=== PATIENT | male | born 1955 | race Caucasian/White ===

== ENCOUNTER 2017-09-24 10:16 | Observation (INO) | payer OTHER ==
[~2017-09-24] VITALS: Ht 182.9 cm; Wt 99.0 kg
[2017-09-24 10:47] LABS: HEMATOCRIT 51.8 % (39.0-50.0); HEMOGLOBIN 17.9 g/dl (14.0-18.0); IMMATURE GRANULOCYTES 0.5 % (0.0-1.0); MEAN CORPUSCULAR HGB 32.5 pG CALC (26.0-32.0); MEAN CORPUSCULAR HGB CONC 34.6 g/L CALC (32.0-36.0); NEUT# 9.8 thou/uL (1.82-7.42); RED BLOOD COUNT 5.51 mill/uL (4.70-6.10); RED CELL DISTRI WIDTH 13.2 % (11.5-15.5)
[2017-09-24 11:01] LABS: ANION GAP 19 (6-22 (CALC)); BUN 18 mg/dL (8-23); BUN/CREATININE RATIO 18 (12-20 (CALC)); CARBON DIOXIDE 20 mmol/l (22-30); CHLORIDE 104 mmol/l (95-108); GFR > 60 ML/MIN (>=60 (CALC)); GFR FOR AFR.AMER. > 60 ML/MIN (>=60 (CALC)); POTASSIUM 3.7 mmol/l (3.5-5.1); SODIUM 139 mmol/l (137-146)
[2017-09-24] MEDS ORDERED: MAGNACAPS100 MG PO (11:59)
[2017-09-24] MEDS ORDERED: METFORMIN500 MG PO (11:59)
[2017-09-24] MEDS ORDERED: HYZAAR1 TA1 PO (12:00)
[2017-09-24] MEDS ORDERED: AMLODIPINE5 MG PO (12:01)
[2017-09-24] MEDS ORDERED: LIPITOR20 MG PO (12:01)
[2017-09-24 13:46] VITALS: BP 116/73
[2017-09-24 19:20] VITALS: BP 131/83
[2017-09-25 00:03] VITALS: BP 122/65
[2017-09-25 04:04] VITALS: BP 119/63
[2017-09-25 06:31] LABS: CHOLESTEROL HDL RATIO 6.3 (<4.4 (CALC))
[2017-09-25 07:40] VITALS: BP 133/80
[2017-09-25 11:03] VITALS: BP 128/70
[2017-09-25] MEDS ORDERED: ASPIRIN ADULT L81 M2 PO (12:08)
== END 2017-09-25 13:18 | disposition home or self-care (01) | DRG 313 ==
LOC: ED 10:16 → ED-I 11:48 → ED 12:28 → MS2 12:29
PROVIDERS: Family Medicine; ADMIT Internal Medicine; ATTEND Internal Medicine
DX: R07.9 Chest pain, unspecified (principal); R55 Syncope and collapse; E11.9 Type 2 diabetes mellitus without complications; I10 Essential (primary) hypertension; J44.9 Chronic obstructive pulmonary disease, unspecified; E78.5 Hyperlipidemia, unspecified; F17.210 Nicotine dependence, cigarettes, uncomplicated; I73.9 Peripheral vascular disease, unspecified; Z79.84 Long term (current) use of oral hypoglycemic drugs
CPT/HCPCS: G0378